=== PATIENT | female | born 1960 ===

== ENCOUNTER 2022-10-01 14:58 | Outpatient (REF) | payer BC, SELFPAY ==
--- NOTE | 2022-10-01 | EMG_ITS ---
Please see scanned EMG / Nerve Conduction Report. MTDD
== END 2022-10-01 14:59 | disposition home or self-care (01) ==
LOC: HO.NEURO 14:58
PROVIDERS: Visit Provider Internal Medicine
DX: Z13.89 Encounter for screening for other disorder (principal)